=== PATIENT | male | born 1990 | race Caucasian/White ===

== ENCOUNTER 2020-10-11 21:47 | Inpatient (IN) ==
[2020-10-11] MEDS ORDERED: 0.9 % Sodium Chloride 1,000 ML IVC ONE (22:22)
[2020-10-11 23:02] LABS: Basophils % 0.1 %; Hematocrit 45.8 % (37.5-50.1); Hemoglobin 15.3 g/dL (12.9-16.9); Immature Granulocytes % 0.4 % (0-4); Lymphocytes % 7.5 %; Mean Corpuscular HGB Conc 33.4 g/dL (31.6-35.5); Mean Corpuscular Hemoglobin 29.1 pg (28.0-33.3); Mean Corpuscular Volume 87.2 fL (83.0-100.0); Mean Platelet Volume 11.1 fL (9.4-12.4); Monocytes # 0.3 K/mcL (0.0-1.3); Monocytes % 2.2 %; Neutrophils # 12.1 K/mcL (1.6-8.9); Platelet Count 434 K/mcL (140-400); Red Blood Count 5.25 M/mcL (4.19-5.50); Red Cell Distribution Width 13.3 % (11.5-14.5); Segmented Neutrophils % 89.8 %; White Blood Count 13.4 K/mcL (4.3-11.1)
[2020-10-11 23:19] LABS: Alanine Aminotransferase 15 Units/L (7-52); Albumin 5.4 g/dL (3.5-5.7); Albumin/Globulin Ratio 1.4 (1.1-2.2); Alkaline Phosphatase 110 Units/L (34-104); Aspartate Amino Transferase 15 Units/L (13-39); BUN/Creatinine Ratio 16 (6-26); Bilirubin,Direct 0.1 mg/dL (0.0-0.2); Bilirubin,Indirect 0.5 mg/dL (0.0-1.0); Bilirubin,Total 0.6 mg/dL (0.3-1.0); Blood Urea Nitrogen 20 mg/dL (6-20); Carbon Dioxide 20 mEq/L (23-29); Chloride 98 mEq/L (98-107); Ethanol < 10 mg/dL (Less than 10); Globulin 3.8 g/dL (2.4-3.5); Glucose 200 mg/dL (70-105); Osmolality,Calculated 292 (280-300); Potassium 4.1 mEq/L (3.5-5.1); Sodium 137 mEq/L (136-145); Total Protein 9.2 g/dL (6.4-8.9); Troponin I < 0.03 ng/mL (< 0.04); eGFR For African Americans > 60 (> 60); eGFR For Non-African Americans > 60 (> 60)
[2020-10-11 23:19] LABS: Bilirubin,Urine Negative (Negative); Blood,Urine Negative (Negative); Clarity,Urine Clear (Clear); Color,Urine Yellow (Yellow); Glucose,Urine (UA) Normal (Normal); Hyaline Casts,Urine Few per lpf (None Seen); Ketones,Urine 20 mg/dL (Negative); Leukocyte Esterase,Urine Moderate (Negative); Mucus,Urine Few per lpf (None-Few); Nitrite,Urine Negative (Negative); Protein,Urine 70 mg/dL (Neg-Trace); RBC,Urine 15-30 per hpf (0-3); Squamous Epithelial Cell,Urine Few per hpf (None-Few); Urobilinogen,Urine Normal (Normal); WBC,Urine 30-50 per hpf (0-3)
[2020-10-11 23:25] LABS: Amphetamine Screen,Urine Negative ng/mL (Cutoff=1000); Barbiturate Screen,Urine Negative ng/mL (Cutoff=200); Benzodiazepines Screen,Urine Negative ng/mL (Cutoff=200); Cannabinoid Screen,Urine Negative ng/mL (Cutoff = 50); Cocaine Screen,Urine Positive ng/mL (Cutoff= 300); Opiate Screen,Urine Negative ng/mL (Cutoff=300); Phencyclidine Screen,Urine Negative ng/mL (Cutoff=25)
[2020-10-11 23:27] LABS: INR 1.2; Prothrombin Time 13.3 Seconds (9.4-12.1)
[2020-10-12 01:05] LABS: Adenovirus Not Detected (Not Detect); Coronavirus 229E Not Detected (Not Detect); Coronavirus HKU1 Not Detected (Not Detect)
[2020-10-12 01:06] LABS: Bordetella Pertussis Not Detected (Not Detect); Chlamydophila pneumoniae Not Detected (Not Detect); Coronavirus NL63 Not Detected (Not Detect); Coronavirus OC43 Not Detected (Not Detect); Human Metapneumovirus Not Detected (Not Detect); Human Rhinovirus/Enterovirus Not Detected (Not Detect); Influenza A Subtype 2009 H1 Not Detected (Not Detect); Influenza B Not Detected (Not Detect); Mycoplasma pneumoniae Not Detected (Not Detect); Parainfluenza Virus 1 Not Detected (Not Detect); Parainfluenza Virus 2 Not Detected (Not Detect); Parainfluenza Virus 3 Not Detected (Not Detect); Parainfluenza Virus 4 Not Detected (Not Detect); Respiratory Syncytial Virus Not Detected (Not Detect); SARS-CoV-2 Not Detected (Not Detect)
[2020-10-12] MEDS ORDERED: 0.9 % Sodium Chloride 1,000 ML IV ONE (14:46)
[2020-10-12] MEDS ORDERED: Naloxone 0.4 MG/ML INJ IVP PRN (16:52)
[2020-10-12] MEDS ORDERED: Aspirin Enteric Coated 325 MG Tablet PO ONE (17:01)
[2020-10-12] MEDS ORDERED: Haloperidol Lactate 5 MG/ML VIAL IVP PRN (17:52)
[2020-10-12 17:54] LABS: Basophils % 0.1 %; Hemoglobin 14.8 g/dL (12.9-16.9); Immature Granulocytes % 0.5 % (0-4); Lymphocytes # 1.2 K/mcL (0.6-4.6); Lymphocytes % 9.1 %; Mean Corpuscular HGB Conc 32.9 g/dL (31.6-35.5); Mean Corpuscular Hemoglobin 29.1 pg (28.0-33.3); Mean Corpuscular Volume 88.4 fL (83.0-100.0); Mean Platelet Volume 10.8 fL (9.4-12.4); Monocytes # 0.6 K/mcL (0.0-1.3); Monocytes % 4.3 %; Neutrophils # 11.3 K/mcL (1.6-8.9); Platelet Count 363 K/mcL (140-400); Red Blood Count 5.09 M/mcL (4.19-5.50); Red Cell Distribution Width 13.5 % (11.5-14.5); White Blood Count 13.1 K/mcL (4.3-11.1)
[2020-10-12] MEDS: 0.9 % Sodium Chloride 1,000 ML IVC SCH (18:02)
[2020-10-12 18:12] LABS: Alanine Aminotransferase 13 Units/L (7-52); Albumin 4.9 g/dL (3.5-5.7); Albumin/Globulin Ratio 1.4 (1.1-2.2); Alkaline Phosphatase 94 Units/L (34-104); Aspartate Amino Transferase 13 Units/L (13-39); BUN/Creatinine Ratio 30 (6-26); Bilirubin,Total 0.9 mg/dL (0.3-1.0); Blood Urea Nitrogen 21 mg/dL (6-20); Calcium 10.3 mg/dL (8.6-10.3); Carbon Dioxide 25 mEq/L (23-29); Chloride 101 mEq/L (98-107); Creatine Kinase 26 Units/L (30-223); Globulin 3.5 g/dL (2.4-3.5); Glucose 125 mg/dL (70-105); Osmolality,Calculated 292 (280-300); Potassium 3.9 mEq/L (3.5-5.1); Sodium 139 mEq/L (136-145); Total Protein 8.4 g/dL (6.4-8.9); eGFR For African Americans > 60 (> 60); eGFR For Non-African Americans > 60 (> 60)
[2020-10-12 18:25] LABS: Thyroid Stimulating Hormone 0.563 mcIU/mL (0.340-5.600)
[2020-10-12] MEDS: cefTRIAXone 1,000 MG in Water for inj. (sterile) 10 ML IVP SCH (18:33)
[2020-10-13] MEDS: 0.9 % Sodium Chloride 1,000 ML IVC SCH (02:43)
[2020-10-13] MEDS: Ondansetron 4 MG/2 ML VIAL IVP PRN (03:13)
[2020-10-13 04:06] LABS: Basophils % 0.1 %; Eosinophils % 0.3 %; Hematocrit 42.2 % (37.5-50.1); Hemoglobin 14.2 g/dL (12.9-16.9); Immature Granulocytes % 0.4 % (0-4); Lymphocytes % 14.6 %; Mean Corpuscular HGB Conc 33.6 g/dL (31.6-35.5); Mean Corpuscular Hemoglobin 29.8 pg (28.0-33.3); Mean Corpuscular Volume 88.7 fL (83.0-100.0); Mean Platelet Volume 10.8 fL (9.4-12.4); Monocytes % 7.5 %; Neutrophils # 10.5 K/mcL (1.6-8.9); Platelet Count 331 K/mcL (140-400); Red Blood Count 4.76 M/mcL (4.19-5.50); Red Cell Distribution Width 13.7 % (11.5-14.5); Segmented Neutrophils % 77.1 %; White Blood Count 13.7 K/mcL (4.3-11.1)
[2020-10-13 04:25] LABS: BUN/Creatinine Ratio 30 (6-26); Blood Urea Nitrogen 21 mg/dL (6-20); Calcium 9.8 mg/dL (8.6-10.3); Carbon Dioxide 25 mEq/L (23-29); Chloride 104 mEq/L (98-107); Glucose 118 mg/dL (70-105); Osmolality,Calculated 296 (280-300); Phosphorous 3.2 mg/dL (2.7-4.5); Sodium 141 mEq/L (136-145); eGFR For African Americans > 60 (> 60); eGFR For Non-African Americans > 60 (> 60)
[2020-10-13] MEDS ORDERED: *HR* Metoprolol 5 MG/5 ML VIAL IVP ONE (05:48)
[2020-10-13] MEDS: cefTRIAXone 1,000 MG in Water for inj. (sterile) 10 ML IVP SCH (07:34)
[2020-10-13] MEDS ORDERED: *HR* LORazepam 2 MG/ML VIAL IVP ONE (10:37)
[2020-10-13 11:13] LABS: Amphetamine Screen,Urine Negative ng/mL (Cutoff=1000); Barbiturate Screen,Urine Negative ng/mL (Cutoff=200); Benzodiazepines Screen,Urine Negative ng/mL (Cutoff=200); Cannabinoid Screen,Urine Negative ng/mL (Cutoff = 50); Cocaine Screen,Urine Positive ng/mL (Cutoff= 300); Opiate Screen,Urine Negative ng/mL (Cutoff=300); Phencyclidine Screen,Urine Negative ng/mL (Cutoff=25)
[2020-10-13] MEDS ORDERED: *HR* LORazepam 1 MG TABLET PO SCH (15:00)
[2020-10-13] MEDS: *HR* LORazepam 2 MG/ML VIAL IVP SCH ×2 (15:24→19:41)
[2020-10-14 04:42] LABS: Basophils % 0.3 %; Eosinophils % 0.1 %; Hematocrit 39.5 % (37.5-50.1); Immature Granulocytes % 0.5 % (0-4); Lymphocytes % 19.2 %; Mean Corpuscular HGB Conc 32.9 g/dL (31.6-35.5); Mean Corpuscular Hemoglobin 29.6 pg (28.0-33.3); Mean Platelet Volume 10.8 fL (9.4-12.4); Monocytes # 0.8 K/mcL (0.0-1.3); Monocytes % 7.2 %; Neutrophils # 7.5 K/mcL (1.6-8.9); Platelet Count 294 K/mcL (140-400); Red Blood Count 4.39 M/mcL (4.19-5.50); Red Cell Distribution Width 13.4 % (11.5-14.5); Segmented Neutrophils % 72.7 %; White Blood Count 10.4 K/mcL (4.3-11.1)
[2020-10-14] MEDS: Ondansetron 4 MG/2 ML VIAL IVP PRN (06:37)
[2020-10-14] MEDS: cefTRIAXone 1,000 MG in Water for inj. (sterile) 10 ML IVP SCH (08:25)
[2020-10-14] MEDS: *HR* LORazepam 2 MG/ML VIAL IVP SCH ×3 (08:25→19:56)
[2020-10-15 07:09] VITALS: BP 133/89
[2020-10-15] MEDS: cefTRIAXone 1,000 MG in Water for inj. (sterile) 10 ML IVP SCH (08:13)
[2020-10-15] MEDS: *HR* LORazepam 2 MG/ML VIAL IVP SCH (08:13)
[2020-10-15] MEDS ORDERED: *HR* LORazepam 1 MG TABLET PO SCH (20:00)
== END 2020-10-15 13:31 | disposition home or self-care (01) | DRG 816 ==
LOC: EMEROOARM 21:47 → 3BNU 21:47 → SUATTDRO 10-12 17:02 → 3BNU 10-12 17:43
PROVIDERS: ADMIT Internal Medicine; ATTEND Internal Medicine

== ENCOUNTER 2021-04-17 01:08 | Observation (INO) ==
[2021-04-17 03:41] LABS: Basophils % 0.2 %; Eosinophils # 0.1 K/mcL (0.0-0.6); Eosinophils % 0.6 %; Hematocrit 40.9 % (37.5-50.1); Hemoglobin 14.2 g/dL (12.9-16.9); Immature Granulocytes % 0.6 % (0-4); Lymphocytes # 2.3 K/mcL (0.6-4.6); Lymphocytes % 18.1 %; Mean Corpuscular HGB Conc 34.7 g/dL (31.6-35.5); Mean Corpuscular Hemoglobin 30.7 pg (28.0-33.3); Mean Corpuscular Volume 88.5 fL (83.0-100.0); Mean Platelet Volume 11.4 fL (9.4-12.4); Monocytes # 0.9 K/mcL (0.0-1.3); Monocytes % 7.3 %; Neutrophils # 9.3 K/mcL (1.6-8.9); Platelet Count 278 K/mcL (140-400); Red Blood Count 4.62 M/mcL (4.19-5.50); Red Cell Distribution Width 13.3 % (11.5-14.5); Segmented Neutrophils % 73.2 %; White Blood Count 12.6 K/mcL (4.3-11.1)
[2021-04-17] MEDS ORDERED: SODIUM CHLORIDE 0.9% IVC ONE (03:45)
[2021-04-17] MEDS ORDERED: NALOXONE IVC ONE (03:45)
[2021-04-17 03:56] LABS: Acetaminophen < 10 mcg/mL (10-20); Alanine Aminotransferase 9 Units/L (7-52); Albumin 4.5 g/dL (3.5-5.7); Albumin/Globulin Ratio 1.7 (1.1-2.2); Alkaline Phosphatase 90 Units/L (34-104); Aspartate Amino Transferase 12 Units/L (13-39); BUN/Creatinine Ratio 18 (6-26); Bilirubin,Direct 0.1 mg/dL (0.0-0.2); Bilirubin,Indirect 0.5 mg/dL (0.0-1.0); Bilirubin,Total 0.6 mg/dL (0.3-1.0); Blood Urea Nitrogen 16 mg/dL (6-20); Carbon Dioxide 25 mEq/L (23-29); Chloride 105 mEq/L (98-107); Ethanol < 10 mg/dL (Less than 10); Globulin 2.7 g/dL (2.4-3.5); Glucose 113 mg/dL (70-105); Osmolality,Calculated 290 (280-300); Potassium 3.5 mEq/L (3.5-5.1); Salicylate < 2.5 mg/dL (15.0-30.0); Sodium 139 mEq/L (136-145); Total Protein 7.2 g/dL (6.4-8.9); eGFR For African Americans > 60 (> 60); eGFR For Non-African Americans > 60 (> 60)
[2021-04-17 04:44] LABS: Amphetamine Screen,Urine Negative ng/mL (Cutoff=1000); Barbiturate Screen,Urine Negative ng/mL (Cutoff=200); Benzodiazepines Screen,Urine Positive ng/mL (Cutoff=200); Cannabinoid Screen,Urine Negative ng/mL (Cutoff = 50); Cocaine Screen,Urine Positive ng/mL (Cutoff= 300); Opiate Screen,Urine Negative ng/mL (Cutoff=300); Phencyclidine Screen,Urine Positive ng/mL (Cutoff=25)
[2021-04-17 04:54] LABS: Bilirubin,Urine Negative (Negative); Blood,Urine Negative (Negative); Clarity,Urine Clear (Clear); Color,Urine Light-Yellow (Yellow); Glucose,Urine (UA) Normal (Normal); Hyaline Casts,Urine Few per lpf (None Seen); Ketones,Urine Trace mg/dL (Negative); Leukocyte Esterase,Urine Moderate (Negative); Nitrite,Urine Negative (Negative); Protein,Urine Negative (Neg-Trace); RBC,Urine 0-3 per hpf (0-3); Specific Gravity,Urine 1.011 (1.010-1.025); Squamous Epithelial Cell,Urine Few per hpf (None-Few); Urobilinogen,Urine Normal (Normal); WBC,Urine 15-30 per hpf (0-3)
[2021-04-17] MEDS ORDERED: Naloxone 0.4 MG/ML INJ IVP PRN (05:27)
[2021-04-17] MEDS ORDERED: Melatonin 3 MG TABLET PO PRN (05:27)
[2021-04-17] MEDS ORDERED: Ringers Solution, Lactated 1,000 ML IVC SCH (05:30)
[2021-04-17 06:11] LABS: Influenza A PCR Negative (Negative); Influenza B PCR Negative (Negative); Resp. Syncytial Virus PCR Negative (Negative)
[2021-04-17 06:14] LABS: SARS-CoV-2 by PCR (In House) Negative (Negative)
[2021-04-17] MEDS ORDERED: cefTRIAXone 1,000 MG in 0.9 % Sodium Chloride Mini Bag 100 ML IVPB SCH (06:18)
[2021-04-17] MEDS: Ampicillin/Sulbactam 3,000 MG in 0.9 % Sodium Chloride Mini Bag 100 ML IVPB SCH ×2 (08:12→12:08)
[2021-04-17 10:35] VITALS: BP 131/83; PULSE 102; TEMP 98.1; O2SAT 97
== END 2021-04-17 16:24 | disposition home or self-care (01) ==
LOC: 2NENU 01:08 → EMEROOARM 01:08 → SUATTDRO 06:22 → 2NENU 07:51
PROVIDERS: ADMIT Internal Medicine; ATTEND Family Medicine